=== PATIENT | female | born 1950 | race Caucasian/White ===

== ENCOUNTER 2017-11-28 19:08 | Emergency (ER) | payer MEDICARE ==
[~2017-11-28] VITALS: Ht 160 cm; Wt 131.8 kg
[~2017-11-28 19:08] MED LIST: AMLO5TAB16 PO; DIAZ5TAB PO; FERR325T32 PO; GEMF600T3 CORPAK; HYDR-4070 PO; LEVO125T8 PO; LOSA25TA96 PO; PRAM0.258 PO; TRAM100T34 PO
[2017-11-28 19:49] LABS: BASOPHILS % (AUTO) 0.3 % (0-1); EOSINOPHILS % (AUTO) 0.2 % (0-6); HEMATOCRIT 33.7 % (35.0-45.0); LYMPHOCYTES # (AUTO) 1.6 X10'3 (1.1-4.8); LYMPHOCYTES % (AUTO) 9.6 % (21-51); MEAN CORPUSCULAR HEMOGLOBIN 31.2 PG (27.0-31.0); MEAN CORPUSCULAR HGB CONC 32.5 % (33.0-36.5); MEAN CORPUSCULAR VOLUME 95.9 FL (78-98); MEAN PLATELET VOLUME 7.6 FL (7.4-10.4); MONOCYTES # (AUTO) 1.1 X10'3 (0-0.9); MONOCYTES % (AUTO) 6.9 % (2-12); NEUTROPHILS # (AUTO) 13.7 X10'3 (1.8-7.7); PLATELET COUNT 356 X10'3 (140-440); RED BLOOD COUNT 3.51 X10'6 (4.20-5.60); RED CELL DISTRIBUTION WIDTH 15.6 % (11.5-14.5); WHITE BLOOD COUNT 16.5 X10'3 (4.5-11.0)
[2017-11-28 19:59] LABS: PROTHROMBIN TIME 10.7 SECONDS (9.0-12.0)
[2017-11-28 19:59] LABS: CLARITY,URINE TURBID (Clear); COLOR,URINE YELLOW (Yellow); GLUCOSE, URINE NEGATIVE (Neg); KETONES,URINE NEGATIVE (Neg); LEUKOCYTE ESTERASE ,URINE LARGE (Neg); NITRITES, URINE NEGATIVE (Neg); OCCULT BLOOD,URINE MODERATE (Neg); PROTEIN,URINE >=300 mg/dl (Neg); UROBILINOGEN,URINE 0.2 E.U/dL (0.2-1.0)
[2017-11-28 20:04] LABS: ALANINE AMINOTRANSFERASE 22 U/L (12-78); ALBUMIN 2.7 G/DL (3.4-5.0); ALBUMIN/GLOBULIN RATIO 0.6 (1.1-1.5); ALKALINE PHOSPHATASE 102 IU/L (46-116); ANION GAP 9 (8-16); ASPARTATE AMINO TRANSFERASE 13 U/L (10-37); BILIRUBIN,TOTAL 0.3 MG/DL (0.1-1.0); BLOOD UREA NITROGEN 33 MG/DL (7-18); BUN/CREATININE RATIO 10.8 (6.6-38.0); CHLORIDE 102 MMOL/L (99-107); CREATININE 3.06 MG/DL (0.40-0.90); GLUCOSE 153 MG/DL (70-104); LIPASE 89 U/L (73-393); POTASSIUM 4.7 MMOL/L (3.5-5.1); SODIUM 138 MMOL/L (135-145); TOTAL CARBON DIOXIDE 27.3 MMOL/L (24-32); TOTAL PROTEIN 7.1 G/DL (6.4-8.2); eGFR 15 ML/MIN
[2017-11-28 20:06] LABS: UA COLLECTION TYPE CLN CATCH MIDSTREAM
[2017-11-28 20:13] LABS: BACTERIA,URINE 3+ /HPF (Neg); MUCUS STRANDS NONE SEEN /LPF (Neg); SQUAMOUS EPITHELIAL CELL,UR FEW /LPF (FEW); TRANSITIONAL EPI CELLS,URINE FEW /HPF; WBC,URINE TNTC /HPF (0-4); YEAST MODERATE /HPF (NEGATIVE)
[2017-11-28] MEDS ORDERED: levoFLOXACIN 750MG TABLET PO ONE (20:25)
[2017-11-28] MEDS ORDERED: phenazopyridine 100mg tablet PO ONE (20:25)
[2017-11-28 20:52] LABS: ANISOCYTOSIS 1+; PLATELET ESTIMATE NORMAL; TOTAL CELLS COUNTED 100
[2017-11-28 20:53] LABS: TARGET CELLS FEW
[2017-11-28 20:55] VITALS: BP 148/72
[2017-11-28] MEDS ORDERED: LEVO500T89 PO (21:22)
[2017-11-28] MEDS ORDERED: PHEN-716 PO (21:22)
== END 2017-11-28 21:38 | disposition home or self-care (01) ==
LOC: ER 19:09
DX: N39.0 Urinary tract infection, site not specified (principal); N28.9 Disorder of kidney and ureter, unspecified; R60.0 Localized edema; I10 Essential (primary) hypertension; E11.9 Type 2 diabetes mellitus without complications; G89.29 Other chronic pain; Z87.442 Personal history of urinary calculi; Z90.49 Acquired absence of other specified parts of digestive tract; Z88.0 Allergy status to penicillin; Z79.899 Other long term (current) drug therapy
CPT/HCPCS: 36415; 80053; 81001; 83690; 85025; 85610; 87088; 99284

== ENCOUNTER 2017-12-06 03:25 | Inpatient (IN) | payer MEDICARE ==
[~2017-12-06] VITALS: Ht 160 cm; Wt 130.4 kg
[~2017-12-06 03:25] MED LIST changes: +LEVO500T89 PO; +PHEN-716 PO
[2017-12-06] MEDS ORDERED: normal saline 1000ml 1,000 ML IV ONE (03:55)
[2017-12-06] MEDS ORDERED: metoclopramide 5 mg/ml inj IV ONE (03:55)
[2017-12-06 04:11] LABS: BASOPHILS # (AUTO) 0.1 X10'3 (0-0.2); BASOPHILS % (AUTO) 0.6 % (0-1); EOSINOPHILS # (AUTO) 0.1 X10'3 (0-0.9); EOSINOPHILS % (AUTO) 0.3 % (0-6); HEMATOCRIT 31.8 % (35.0-45.0); HEMOGLOBIN 10.6 g/dl (12.0-16.0); LYMPHOCYTES # (AUTO) 2.5 X10'3 (1.1-4.8); LYMPHOCYTES % (AUTO) 13.2 % (21-51); MEAN CORPUSCULAR HEMOGLOBIN 31.2 PG (27.0-31.0); MEAN CORPUSCULAR HGB CONC 33.2 % (33.0-36.5); MEAN PLATELET VOLUME 7.1 FL (7.4-10.4); MONOCYTES % (AUTO) 5.3 % (2-12); NEUTROPHILS # (AUTO) 15.1 X10'3 (1.8-7.7); NEUTROPHILS % (AUTO) 80.6 % (42-75); PLATELET COUNT 373 X10'3 (140-440); RED BLOOD COUNT 3.39 X10'6 (4.20-5.60); WHITE BLOOD COUNT 18.8 X10'3 (4.5-11.0)
[2017-12-06 04:28] LABS: ALANINE AMINOTRANSFERASE 31 U/L (12-78); ALBUMIN 2.4 G/DL (3.4-5.0); ALBUMIN/GLOBULIN RATIO 0.5 (1.1-1.5); ALKALINE PHOSPHATASE 152 IU/L (46-116); ANION GAP 14 (8-16); ASPARTATE AMINO TRANSFERASE 21 U/L (10-37); BILIRUBIN,TOTAL 0.3 MG/DL (0.1-1.0); BLOOD UREA NITROGEN 53 MG/DL (7-18); BUN/CREATININE RATIO 12.5 (6.6-38.0); CALCIUM 8.8 MG/DL (8.5-10.1); CHLORIDE 102 MMOL/L (99-107); CREATININE 4.23 MG/DL (0.40-0.90); GLUCOSE 178 MG/DL (70-104); POTASSIUM 4.3 MMOL/L (3.5-5.1); SODIUM 138 MMOL/L (135-145); TOTAL CARBON DIOXIDE 22.5 MMOL/L (24-32); eGFR 10 ML/MIN
[2017-12-06 04:30] LABS: CLARITY,URINE CLOUDY (Clear); COLOR,URINE YELLOW (Yellow); GLUCOSE, URINE NEGATIVE (Neg); KETONES,URINE NEGATIVE (Neg); LEUKOCYTE ESTERASE ,URINE LARGE (Neg); OCCULT BLOOD,URINE SMALL (Neg); PROTEIN,URINE 100 mg/dl (Neg); UROBILINOGEN,URINE 0.2 E.U/dL (0.2-1.0)
[2017-12-06 04:36] LABS: UA COLLECTION TYPE CLN CATCH MIDSTREAM
[2017-12-06 04:37] LABS: NITRITES, URINE NEGATIVE (Neg); WBC,URINE 50-100 /HPF (0-4)
[2017-12-06 04:38] LABS: BACTERIA,URINE FEW /HPF (Neg); SQUAMOUS EPITHELIAL CELL,UR FEW /LPF (FEW); WBC CLUMPS,URINE FEW /HPF (NEGATIVE); YEAST MODERATE /HPF (NEGATIVE)
[2017-12-06] MEDS ORDERED: CefTRIAXone/D5W-Rocephin 1gm 50 ML IV ONE (04:55)
[2017-12-06] MEDS ORDERED: fluconazole 100mg tablet PO ONE ×2 (04:55→05:10)
[2017-12-06] MEDS ORDERED: diphenhydrAMINE 50 mg/ml inj IV ONE (05:10)
[2017-12-06] MEDS ORDERED: ondansetron/PF 4mg/2ml inj IV PRN (05:25)
[2017-12-06] MEDS ORDERED: insulin Lispro (HumaLOG) vial - multi-dose SQ SCH ×2 (05:25→11:00)
[2017-12-06] MEDS ORDERED: acetaminophen 325mg tablet PO PRN ×2 (05:25)
[2017-12-06] MEDS ORDERED: glucagon, human recombinant 1mg kit SUBCUT PRN ×2 (05:25→11:00)
[2017-12-06] MEDS ORDERED: magnesium hydroxide 30ml (MOM) UD suspension PO PRN (05:25)
[2017-12-06] MEDS ORDERED: dextrose ORAL solution 15 GM/59 ML bottle PO PRN ×4 (05:25→11:00)
[2017-12-06] MEDS ORDERED: mag hydrox/Alum hydrox/simeth 30ml oral suspension PO PRN (05:25)
[2017-12-06] MEDS ORDERED: diphenhydrAMINE 50 mg/ml inj IV PRN (05:25)
[2017-12-06] MEDS ORDERED: dextrose 50%-water 50ml dispensing syringe IV PRN ×4 (05:25→11:00)
[2017-12-06] MEDS ORDERED: HYDROcodone/acetaminophen 5mg/325mg tablet PO PRN (05:25)
[2017-12-06] MEDS ORDERED: diazepam 5mg tablet PO PRN (05:30)
[2017-12-06] MEDS: normal saline 1000ml 1,000 ML IV SCH ×2 (06:00→16:29)
[2017-12-06] MEDS ORDERED: fluconazole 150mg tablet PO ONE (06:30)
[2017-12-06] MEDS ORDERED: pramipexole 0.25mg tablet PO ONE (06:35)
[2017-12-06 08:00] VITALS: BP 158/87
[2017-12-06] MEDS ORDERED: ferrous sulfate 325mg tablet PO SCH (08:00)
[2017-12-06] MEDS ORDERED: pramipexole 0.25mg tablet PO SCH ×2 (08:00)
[2017-12-06] MEDS ORDERED: gemfibrozil 600mg tablet CORPAK SCH (08:00)
[2017-12-06] MEDS: losartan 50mg tablet PO SCH (08:00)
[2017-12-06] MEDS ORDERED: levoTHYROXINE 125mcg tablet PO SCH (08:00)
[2017-12-06] MEDS: HYDROcodone/acetaminophen 10/325mg tab PO PRN (09:17)
[2017-12-06] MEDS: enoxaparin 30mg/0.3ml syringe SUBCUT SCH (09:18)
[2017-12-06] MEDS: hydrALAZINE 25 MG tablet PO SCH ×3 (09:18→23:36)
[2017-12-06] MEDS: amLODIPine 5mg tablet PO SCH (10:07)
[2017-12-06] MEDS ORDERED: MESSAGE TO PHARMACY PO ONE (11:00)
[2017-12-06 12:00] VITALS: BP 134/67
[2017-12-06] MEDS: fluconazole 100mg tablet PO SCH (16:29)
[2017-12-06 19:00] VITALS: BP 132/69
[2017-12-06] MEDS: pramipexole 0.25mg tablet PO SCH (20:57)
[2017-12-06] MEDS: traMADol 50MG tablet PO SCH (20:57)
[2017-12-06] MEDS ORDERED: insulin glargine (Lantus) pen - multi-dose SQ SCH (21:00)
[2017-12-06] MEDS: insulin glargine (Lantus) pen - multi-dose SQ SCH (21:00)
[2017-12-06] MEDS ORDERED: temazepam 15mg capsule PO PRN (21:00)
[2017-12-07 00:13] VITALS: BP 130/69
[2017-12-07] MEDS: normal saline 1000ml 1,000 ML IV SCH ×3 (01:17→20:16)
[2017-12-07 06:33] LABS: BASOPHILS % (AUTO) 0.2 % (0-1); EOSINOPHILS # (AUTO) 0.2 X10'3 (0-0.9); HEMATOCRIT 29.1 % (35.0-45.0); HEMOGLOBIN 9.5 g/dl (12.0-16.0); LYMPHOCYTES # (AUTO) 3.3 X10'3 (1.1-4.8); LYMPHOCYTES % (AUTO) 22.2 % (21-51); MEAN CORPUSCULAR HEMOGLOBIN 30.7 PG (27.0-31.0); MEAN CORPUSCULAR HGB CONC 32.5 % (33.0-36.5); MEAN CORPUSCULAR VOLUME 94.4 FL (78-98); MEAN PLATELET VOLUME 6.9 FL (7.4-10.4); MONOCYTES # (AUTO) 0.9 X10'3 (0-0.9); MONOCYTES % (AUTO) 6.3 % (2-12); NEUTROPHILS # (AUTO) 10.3 X10'3 (1.8-7.7); NEUTROPHILS % (AUTO) 70.3 % (42-75); PLATELET COUNT 315 X10'3 (140-440); RED BLOOD COUNT 3.08 X10'6 (4.20-5.60); RED CELL DISTRIBUTION WIDTH 15.6 % (11.5-14.5); WHITE BLOOD COUNT 14.6 X10'3 (4.5-11.0)
[2017-12-07 06:40] VITALS: BP 112/73
[2017-12-07 06:47] LABS: ALBUMIN 2.1 G/DL (3.4-5.0); ANION GAP 11 (8-16); BLOOD UREA NITROGEN 44 MG/DL (7-18); BUN/CREATININE RATIO 13.8 (6.6-38.0); CALCIUM 8.3 MG/DL (8.5-10.1); CHLORIDE 108 MMOL/L (99-107); CHOL/HDL RATIO 4.7 (0.00-4.99); CHOLESTEROL 127 MG/DL (0-200); CREATININE 3.19 MG/DL (0.40-0.90); GLUCOSE 118 MG/DL (70-104); HDL CHOLESTEROL 27 MG/DL (35-60); LDL CHOLESTEROL 78 MG/DL (50-100); POTASSIUM 4.4 MMOL/L (3.5-5.1); SODIUM 142 MMOL/L (135-145); TOTAL CARBON DIOXIDE 23.1 MMOL/L (24-32); TRIGLYCERIDES 163 MG/DL (20-135); eGFR 14 ML/MIN
[2017-12-07] MEDS: levoTHYROXINE 175mcg tablet PO SCH (07:29)
[2017-12-07] MEDS: hydrALAZINE 25 MG tablet PO SCH ×3 (07:29→23:51)
[2017-12-07] MEDS: CefTRIAXone/D5W-Rocephin 1gm 50 ML IV SCH (07:31)
[2017-12-07] MEDS: amLODIPine 5mg tablet PO SCH (07:32)
[2017-12-07] MEDS: enoxaparin 30mg/0.3ml syringe SUBCUT SCH ×2 (07:33→12:28)
[2017-12-07] MEDS: losartan 50mg tablet PO SCH (07:33)
[2017-12-07] MEDS: fluconazole 100mg tablet PO SCH (07:41)
[2017-12-07] MEDS ORDERED: ALLO100T PO (09:48)
[2017-12-07 11:43] VITALS: BP 165/89
[2017-12-07] MEDS: HYDROcodone/acetaminophen 10/325mg tab PO PRN (12:28)
[2017-12-07 19:36] VITALS: BP 141/80
[2017-12-07] MEDS: lactobacillus rhamnosus 10,000 MMU CELLS/CAPSULE PO SCH (20:11)
[2017-12-07] MEDS: pramipexole 0.25mg tablet PO SCH (20:12)
[2017-12-07] MEDS: docusate sod 100mg capsule PO SCH (20:12)
[2017-12-07] MEDS: insulin glargine (Lantus) pen - multi-dose SQ SCH (20:14)
[2017-12-07] MEDS: traMADol 50MG tablet PO SCH (20:16)
[2017-12-07 23:57] VITALS: BP 134/73
[2017-12-08] MEDS: normal saline 1000ml 1,000 ML IV SCH (03:09)
[2017-12-08 05:11] LABS: BASOPHILS # (AUTO) 0.1 X10'3 (0-0.2); BASOPHILS % (AUTO) 0.5 % (0-1); EOSINOPHILS # (AUTO) 0.1 X10'3 (0-0.9); EOSINOPHILS % (AUTO) 0.7 % (0-6); HEMATOCRIT 27.9 % (35.0-45.0); HEMOGLOBIN 9.1 g/dl (12.0-16.0); LYMPHOCYTES % (AUTO) 18.9 % (21-51); MEAN CORPUSCULAR HGB CONC 32.8 % (33.0-36.5); MEAN CORPUSCULAR VOLUME 94.3 FL (78-98); MEAN PLATELET VOLUME 7.2 FL (7.4-10.4); MONOCYTES # (AUTO) 0.8 X10'3 (0-0.9); MONOCYTES % (AUTO) 5.1 % (2-12); NEUTROPHILS # (AUTO) 11.8 X10'3 (1.8-7.7); NEUTROPHILS % (AUTO) 74.8 % (42-75); PLATELET COUNT 294 X10'3 (140-440); RED BLOOD COUNT 2.96 X10'6 (4.20-5.60); WHITE BLOOD COUNT 15.8 X10'3 (4.5-11.0)
[2017-12-08 05:46] LABS: ALBUMIN 2.1 G/DL (3.4-5.0); ANION GAP 7 (8-16); BLOOD UREA NITROGEN 38 MG/DL (7-18); BUN/CREATININE RATIO 13.4 (6.6-38.0); CALCIUM 8.4 MG/DL (8.5-10.1); CHLORIDE 107 MMOL/L (99-107); CREATININE 2.84 MG/DL (0.40-0.90); GLUCOSE 117 MG/DL (70-104); POTASSIUM 4.5 MMOL/L (3.5-5.1); SODIUM 140 MMOL/L (135-145); TOTAL CARBON DIOXIDE 25.8 MMOL/L (24-32); eGFR 17 ML/MIN
[2017-12-08 06:59] VITALS: BP 138/82
[2017-12-08] MEDS: fluconazole 100mg tablet PO SCH (07:17)
[2017-12-08] MEDS: amLODIPine 5mg tablet PO SCH (07:18)
[2017-12-08] MEDS: levoTHYROXINE 175mcg tablet PO SCH (07:18)
[2017-12-08] MEDS: docusate sod 100mg capsule PO SCH (07:18)
[2017-12-08] MEDS: lactobacillus rhamnosus 10,000 MMU CELLS/CAPSULE PO SCH (07:18)
[2017-12-08] MEDS: hydrALAZINE 25 MG tablet PO SCH (07:18)
[2017-12-08] MEDS: CefTRIAXone/D5W-Rocephin 1gm 50 ML IV SCH (07:19)
[2017-12-08] MEDS: enoxaparin 30mg/0.3ml syringe SUBCUT SCH (07:19)
[2017-12-08] MEDS ORDERED: INSU300I3 SQ (10:58)
[2017-12-08] MEDS ORDERED: LACT1CAP26 PO (10:58)
[2017-12-08] MEDS ORDERED: CEFD300C3 PO (10:58)
[2017-12-08] MEDS ORDERED: FLUC100T9 PO (10:58)
[2017-12-08 11:36] VITALS: BP 143/67
== END 2017-12-08 12:01 | disposition home or self-care (01) | DRG 872 ==
LOC: ER 03:26 → ED HOLD 05:22 → SUR 3N 07:15
PROVIDERS: ADMIT Hospitalist; ATTEND Family Medicine
PROC: CT131ZZ Planar Nuclear Medicine Imaging of Kidneys, Ureters and Bladder using Technetium 99m (Tc-99m) (ICD-10-PCS; principal; 2017-12-07)
DX: A41.9 Sepsis, unspecified organism (principal); N17.9 Acute kidney failure, unspecified; Z68.43 Body mass index [BMI] 50.0-59.9, adult; N13.6 Pyonephrosis; D64.9 Anemia, unspecified; D86.85 Sarcoid myocarditis; E03.9 Hypothyroidism, unspecified; E11.22 Type 2 diabetes mellitus with diabetic chronic kidney disease; E66.01 Morbid (severe) obesity due to excess calories; E86.0 Dehydration; G89.29 Other chronic pain; I12.9 Hypertensive chronic kidney disease with stage 1 through stage 4 chronic kidney disease, or unspecified chronic kidney disease; M19.90 Unspecified osteoarthritis, unspecified site; N18.9 Chronic kidney disease, unspecified; Z90.49 Acquired absence of other specified parts of digestive tract; Z90.710 Acquired absence of both cervix and uterus; Z99.81 Dependence on supplemental oxygen; Z88.0 Allergy status to penicillin; Z79.899 Other long term (current) drug therapy; Z79.4 Long term (current) use of insulin; Z87.442 Personal history of urinary calculi
CPT/HCPCS: 36415; 71045; 74176; 78707; 80048; 80053; 80061; 81001; 82948; 83605; 84145; 84443; 85025; 87040; 87070; 87088; 88300; 93005; 93306; 96361; 96374; 96375; 99285; A6258; A6402; A9562; J0696; J1200; J1650; J1815; J2765; J7030

== ENCOUNTER 2018-08-22 17:26 | Emergency (ER) | payer MEDICARE ==
[~2018-08-22] VITALS: Ht 167.6 cm; Wt 125.0 kg
[~2018-08-22 17:26] MED LIST changes: +ALLO100T PO; +FLUC100T9 PO; -GEMF600T3 CORPAK; +GEMF600T5 CORPAK; +INSU300I3 SQ; +LACT1CAP26 PO; -LEVO500T89 PO; -LOSA25TA96 PO; -PHEN-716 PO
[2018-08-22] MEDS ORDERED: diazepam 5mg tablet PO ONE (17:40)
[2018-08-22] MEDS ORDERED: ondansetron/PF 4mg/2ml inj IV ONE (17:45)
[2018-08-22] MEDS ORDERED: DIAZ5TAB PO (19:05)
[2018-08-22 19:12] VITALS: BP 156/89
--- NOTE | 2018-08-22 19:58 | NUR ---
educated pt on dc instuctions including medications, all questions answered. iv removed w/canula intact. pt assisted to pov via wheelchair, denies any dizziness at dc..
== END 2018-08-22 20:03 | disposition home or self-care (01) ==
LOC: ER 17:27
DX: R42 Dizziness and giddiness (principal); R11.2 Nausea with vomiting, unspecified; R20.2 Paresthesia of skin; I12.9 Hypertensive chronic kidney disease with stage 1 through stage 4 chronic kidney disease, or unspecified chronic kidney disease; E11.22 Type 2 diabetes mellitus with diabetic chronic kidney disease; N18.9 Chronic kidney disease, unspecified; G89.29 Other chronic pain; M54.9 Dorsalgia, unspecified; Z79.4 Long term (current) use of insulin; Z90.49 Acquired absence of other specified parts of digestive tract; Z88.0 Allergy status to penicillin
CPT/HCPCS: 96374; 99284; J2405

== ENCOUNTER 2019-01-27 13:54 | Emergency (ER) | payer MEDICARE ==
[~2019-01-27] VITALS: Ht 160 cm; Wt 127.3 kg
[2019-01-27 14:16] LABS: BASOPHILS # (AUTO) 0.1 X10'3 (0-0.2); BASOPHILS % (AUTO) 0.8 % (0-1); EOSINOPHILS # (AUTO) 0.1 X10'3 (0-0.9); HEMATOCRIT 35.2 % (35.0-45.0); HEMOGLOBIN 11.4 g/dl (12.0-16.0); LYMPHOCYTES # (AUTO) 3.5 X10'3 (1.1-4.8); LYMPHOCYTES % (AUTO) 38.5 % (21-51); MEAN CORPUSCULAR HEMOGLOBIN 32.2 PG (27.0-31.0); MEAN CORPUSCULAR HGB CONC 32.3 g/dL (33.0-36.5); MEAN CORPUSCULAR VOLUME 99.6 FL (78-98); MEAN PLATELET VOLUME 7.8 FL (7.4-10.4); MONOCYTES # (AUTO) 0.5 X10'3 (0-0.9); MONOCYTES % (AUTO) 5.9 % (2-12); NEUTROPHILS # (AUTO) 4.9 X10'3 (1.8-7.7); NEUTROPHILS % (AUTO) 53.8 % (42-75); PLATELET COUNT 272 X10'3 (140-440); RED BLOOD COUNT 3.54 X10'6 (4.20-5.60); RED CELL DISTRIBUTION WIDTH 13.8 % (11.5-14.5); WHITE BLOOD COUNT 9.2 X10'3 (4.5-11.0)
[2019-01-27] MEDS ORDERED: LORazepam 2 mg/ml vial IV ONE (14:25)
[2019-01-27] MEDS ORDERED: normal saline 1000ML IV soln IVB ONE (14:25)
[2019-01-27 14:28] LABS: ALANINE AMINOTRANSFERASE 21 U/L (12-78); ALBUMIN 3.2 G/DL (3.4-5.0); ALBUMIN/GLOBULIN RATIO 0.9 (1.1-1.5); ALKALINE PHOSPHATASE 77 IU/L (46-116); ANION GAP 10 (8-16); ASPARTATE AMINO TRANSFERASE 13 U/L (10-37); BILIRUBIN,TOTAL 0.3 MG/DL (0.1-1.0); BLOOD UREA NITROGEN 36 MG/DL (7-18); BUN/CREATININE RATIO 16.4 (6.6-38.0); CALCIUM 8.6 MG/DL (8.5-10.1); CHLORIDE 106 MMOL/L (99-107); GLUCOSE 224 MG/DL (70-104); PARTIAL THROMBOPLASTIN TIME 27 SECONDS (22-32); POTASSIUM 4.7 MMOL/L (3.5-5.1); SODIUM 140 MMOL/L (135-145); TOTAL CARBON DIOXIDE 23.7 MMOL/L (24-32); TOTAL PROTEIN 6.6 G/DL (6.4-8.2); eGFR 22 ML/MIN
--- NOTE | 2019-01-27 14:30 | NUR ---
STROKE ALERT CALLED OFF BY DR VILLATORO
[2019-01-27 14:31] LABS: TROPONIN I < 0.04 NG/ML (0.0-0.05)
[2019-01-27 16:04] LABS: CLARITY,URINE CLOUDY (Clear); COLOR,URINE STRAW (Yellow); GLUCOSE, URINE NEGATIVE (Neg); KETONES,URINE NEGATIVE (Neg); LEUKOCYTE ESTERASE ,URINE SMALL (Neg); NITRITES, URINE NEGATIVE (Neg); OCCULT BLOOD,URINE TRACE-INTACT (Neg); PROTEIN,URINE >=300 mg/dl (Neg); UROBILINOGEN,URINE 0.2 E.U/dL (0.2-1.0)
[2019-01-27 16:05] LABS: UA COLLECTION TYPE STRAIGHT CATH
[2019-01-27 16:10] LABS: HYALINE CASTS 0-3 /LPF (NEGATIVE); MUCUS STRANDS NONE SEEN /LPF (Neg); SQUAMOUS EPITHELIAL CELL,UR FEW /LPF (FEW); WBC,URINE TNTC /HPF (0-4)
[2019-01-27 16:11] LABS: WBC CLUMPS,URINE FEW /HPF (NEGATIVE)
[2019-01-27 16:12] LABS: RBC,URINE 20-50 /HPF (0-2)
[2019-01-27 16:13] LABS: BACTERIA,URINE NONE SEEN /HPF (Neg)
[2019-01-27 16:15] LABS: AMORPHOUS URATES 2+
--- NOTE | 2019-01-27 16:19 | NUR ---
MD AWARE OF URINE RESULTS, ORDER FOR A CULTURE
[2019-01-27] MEDS ORDERED: CefTRIAXone 2gm/D5W 50ml 50 ML IV ONE (16:20)
[2019-01-27] MEDS ORDERED: CEPH500C5 PO (17:12)
[2019-01-27 17:32] VITALS: BP 148/77
== END 2019-01-27 17:37 | disposition home or self-care (01) ==
LOC: ER 13:55
DX: N39.0 Urinary tract infection, site not specified (principal); R20.0 Anesthesia of skin; E86.0 Dehydration; I12.9 Hypertensive chronic kidney disease with stage 1 through stage 4 chronic kidney disease, or unspecified chronic kidney disease; E11.22 Type 2 diabetes mellitus with diabetic chronic kidney disease; N18.9 Chronic kidney disease, unspecified; G89.29 Other chronic pain; Z90.49 Acquired absence of other specified parts of digestive tract; Z88.0 Allergy status to penicillin; Z79.2 Long term (current) use of antibiotics; Z79.4 Long term (current) use of insulin; Z79.899 Other long term (current) drug therapy
CPT/HCPCS: 36415; 70450; 71045; 80053; 81001; 84484; 85025; 85610; 85730; 87088; 93005; 96361; 96365; 96375; 99284; J0696; J2060; J7030; P9612

== ENCOUNTER 2019-07-09 12:47 | Emergency (ER) | payer MEDICARE ==
[~2019-07-09] VITALS: Ht 160 cm; Wt 117.5 kg
[~2019-07-09 12:47] MED LIST changes: +CEPH500C5 PO
[2019-07-09 13:55] LABS: BASOPHILS % (AUTO) 0.5 % (0-1); EOSINOPHILS # (AUTO) 0.1 X10'3 (0-0.9); EOSINOPHILS % (AUTO) 0.8 % (0-6); HEMATOCRIT 34.3 % (35.0-45.0); HEMOGLOBIN 11.3 g/dl (12.0-16.0); LYMPHOCYTES # (AUTO) 2.8 X10'3 (1.1-4.8); LYMPHOCYTES % (AUTO) 31.8 % (21-51); MEAN CORPUSCULAR HEMOGLOBIN 32.5 PG (27.0-31.0); MEAN CORPUSCULAR HGB CONC 32.9 g/dL (33.0-36.5); MEAN CORPUSCULAR VOLUME 98.9 FL (78-98); MEAN PLATELET VOLUME 7.3 FL (7.4-10.4); MONOCYTES # (AUTO) 0.6 X10'3 (0-0.9); MONOCYTES % (AUTO) 6.4 % (2-12); NEUTROPHILS # (AUTO) 5.4 X10'3 (1.8-7.7); NEUTROPHILS % (AUTO) 60.5 % (42-75); PLATELET COUNT 287 X10'3 (140-440); RED BLOOD COUNT 3.47 X10'6 (4.20-5.60); RED CELL DISTRIBUTION WIDTH 14.2 % (11.5-14.5); WHITE BLOOD COUNT 8.8 X10'3 (4.5-11.0)
[2019-07-09 14:12] LABS: ALANINE AMINOTRANSFERASE 20 U/L (12-78); ALBUMIN 3.1 G/DL (3.4-5.0); ALBUMIN/GLOBULIN RATIO 0.9 (1.1-1.5); ALKALINE PHOSPHATASE 103 IU/L (46-116); ANION GAP 9 (8-16); ASPARTATE AMINO TRANSFERASE 13 U/L (10-37); BILIRUBIN,TOTAL 0.2 MG/DL (0.1-1.0); BLOOD UREA NITROGEN 47 MG/DL (7-18); CHLORIDE 108 MMOL/L (99-107); CREATININE 2.48 MG/DL (0.40-0.90); GLUCOSE 186 MG/DL (70-104); POTASSIUM 4.8 MMOL/L (3.5-5.1); SODIUM 143 MMOL/L (135-145); TOTAL CARBON DIOXIDE 26.3 MMOL/L (24-32); TOTAL PROTEIN 6.7 G/DL (6.4-8.2); eGFR 19 ML/MIN
[2019-07-09] MEDS ORDERED: normal saline 1000ml 1,000 ML IV ONE ×2 (15:10→17:00)
[2019-07-09 16:15] LABS: CLARITY,URINE SLIGHTLY CLOUDY (Clear); COLOR,URINE YELLOW (Yellow); GLUCOSE, URINE 100 mg/dl (Neg); KETONES,URINE NEGATIVE (Neg); LEUKOCYTE ESTERASE ,URINE SMALL (Neg); NITRITES, URINE NEGATIVE (Neg); OCCULT BLOOD,URINE TRACE-INTACT (Neg); PROTEIN,URINE >=300 mg/dl (Neg); UROBILINOGEN,URINE 0.2 E.U/dL (0.2-1.0)
[2019-07-09 16:22] LABS: UA COLLECTION TYPE CLN CATCH MIDSTREAM
[2019-07-09 16:26] LABS: RBC,URINE 0-2 /HPF (0-2); WBC,URINE TNTC /HPF (0-4)
[2019-07-09 16:27] LABS: BACTERIA,URINE 1+ /HPF (Neg); MUCUS STRANDS NONE SEEN /LPF (Neg); SQUAMOUS EPITHELIAL CELL,UR MANY /LPF (FEW)
[2019-07-09] MEDS ORDERED: LEVO750T21 PO (17:10)
[2019-07-09] MEDS ORDERED: CefTRIAXone/D5W-Rocephin 1gm 50 ML IV ONE (17:10)
[2019-07-09 18:03] VITALS: BP 196/93
== END 2019-07-09 18:05 | disposition home or self-care (01) ==
LOC: ER 12:48
DX: N39.0 Urinary tract infection, site not specified (principal); G89.29 Other chronic pain; I12.9 Hypertensive chronic kidney disease with stage 1 through stage 4 chronic kidney disease, or unspecified chronic kidney disease; E11.22 Type 2 diabetes mellitus with diabetic chronic kidney disease; N18.9 Chronic kidney disease, unspecified; Z90.49 Acquired absence of other specified parts of digestive tract; Z88.0 Allergy status to penicillin; Z79.899 Other long term (current) drug therapy; Z87.442 Personal history of urinary calculi
CPT/HCPCS: 36415; 74176; 80053; 81001; 85025; 96365; 99284; J0696; J7030

== ENCOUNTER 2019-12-04 11:54 | Emergency (ER) | payer MEDICARE ==
[~2019-12-04] VITALS: Ht 160 cm; Wt 131.8 kg
[2019-12-04 15:26] VITALS: BP 175/110
== END 2019-12-04 15:35 | disposition home or self-care (01) ==
LOC: ER 11:55
DX: M71.21 Synovial cyst of popliteal space [Baker], right knee (principal); M19.90 Unspecified osteoarthritis, unspecified site; I12.9 Hypertensive chronic kidney disease with stage 1 through stage 4 chronic kidney disease, or unspecified chronic kidney disease; N18.9 Chronic kidney disease, unspecified; E11.22 Type 2 diabetes mellitus with diabetic chronic kidney disease; G89.29 Other chronic pain; Z90.49 Acquired absence of other specified parts of digestive tract; Z88.0 Allergy status to penicillin; Z79.4 Long term (current) use of insulin; Z79.899 Other long term (current) drug therapy
CPT/HCPCS: 93971; 99285

== ENCOUNTER 2020-04-12 09:14 | Emergency (ER) | payer MEDICARE ==
[~2020-04-12] VITALS: Ht 160 cm; Wt 131.8 kg
[~2020-04-12 09:14] MED LIST changes: -CEPH500C5 PO
[2020-04-12 10:01] LABS: BASOPHILS % (AUTO) 0.3 % (0-1); EOSINOPHILS % (AUTO) 0.1 % (0-6); HEMATOCRIT 28.9 % (35.0-45.0); HEMOGLOBIN 9.4 g/dl (12.0-16.0); LYMPHOCYTES # (AUTO) 1.8 X10'3 (1.1-4.8); LYMPHOCYTES % (AUTO) 27.8 % (21-51); MEAN CORPUSCULAR HEMOGLOBIN 33.3 PG (27.0-31.0); MEAN CORPUSCULAR HGB CONC 32.4 g/dL (33.0-36.5); MEAN CORPUSCULAR VOLUME 102.6 FL (78-98); MEAN PLATELET VOLUME 7.6 FL (7.4-10.4); MONOCYTES # (AUTO) 0.6 X10'3 (0-0.9); MONOCYTES % (AUTO) 9.3 % (2-12); NEUTROPHILS # (AUTO) 4.2 X10'3 (1.8-7.7); NEUTROPHILS % (AUTO) 62.5 % (42-75); PLATELET COUNT 205 X10'3 (140-440); RED BLOOD COUNT 2.82 X10'6 (4.20-5.60); RED CELL DISTRIBUTION WIDTH 14.9 % (11.5-14.5); WHITE BLOOD COUNT 6.7 X10'3 (4.5-11.0)
[2020-04-12 10:11] LABS: ALANINE AMINOTRANSFERASE 15 U/L (12-78); ALBUMIN 2.8 G/DL (3.4-5.0); ALBUMIN/GLOBULIN RATIO 0.8 (1.1-1.5); ALKALINE PHOSPHATASE 76 IU/L (46-116); ANION GAP 6 (8-16); ASPARTATE AMINO TRANSFERASE 15 U/L (10-37); BILIRUBIN,TOTAL 0.3 MG/DL (0.1-1.0); BLOOD UREA NITROGEN 42 MG/DL (7-18); CALCIUM 8.3 MG/DL (8.5-10.1); CHLORIDE 107 MMOL/L (99-107); CREATININE 2.47 MG/DL (0.40-0.90); GLUCOSE 113 MG/DL (70-104); LIPASE 155 U/L (73-393); SODIUM 138 MMOL/L (135-145); TOTAL CARBON DIOXIDE 24.7 MMOL/L (24-32); TOTAL PROTEIN 6.4 G/DL (6.4-8.2); eGFR 19 ML/MIN
[2020-04-12 11:10] LABS: CLARITY,URINE CLOUDY (Clear); COLOR,URINE STRAW (Yellow); GLUCOSE, URINE NEGATIVE (Neg); KETONES,URINE NEGATIVE (Neg); LEUKOCYTE ESTERASE ,URINE SMALL (Neg); NITRITES, URINE NEGATIVE (Neg); OCCULT BLOOD,URINE NEGATIVE (Neg); PROTEIN,URINE >=300 mg/dl (Neg); UROBILINOGEN,URINE 0.2 E.U/dL (0.2-1.0)
[2020-04-12 11:17] LABS: UA COLLECTION TYPE CLN CATCH MIDSTREAM
[2020-04-12 11:19] LABS: SQUAMOUS EPITHELIAL CELL,UR MODERATE /LPF (FEW)
[2020-04-12 11:20] LABS: MUCUS STRANDS FEW /LPF (Neg); TRANSITIONAL EPI CELLS,URINE FEW /HPF; WBC CLUMPS,URINE MANY /HPF (NEGATIVE); WBC,URINE 50-100 /HPF (0-4)
[2020-04-12 11:21] LABS: BACTERIA,URINE 1+ /HPF (Neg); RBC,URINE 0-2 /HPF (0-2)
[2020-04-12] MEDS ORDERED: LEVO500T89 PO (11:40)
[2020-04-12 12:18] VITALS: BP 161/90
== END 2020-04-12 12:11 | disposition home or self-care (01) ==
LOC: ER 09:14
DX: N39.0 Urinary tract infection, site not specified (principal); I13.10 Hypertensive heart and chronic kidney disease without heart failure, with stage 1 through stage 4 chronic kidney disease, or unspecified chronic kidney disease; E13.22 Other specified diabetes mellitus with diabetic chronic kidney disease; N18.9 Chronic kidney disease, unspecified; G89.29 Other chronic pain; Z90.49 Acquired absence of other specified parts of digestive tract; Z98.890 Other specified postprocedural states; Z88.0 Allergy status to penicillin; Z79.899 Other long term (current) drug therapy; Z20.828 Contact with and (suspected) exposure to other viral communicable diseases
CPT/HCPCS: 36415; 80053; 81001; 83690; 85025; 87077; 87088; 87186; 87635; 99283

== ENCOUNTER 2020-04-15 19:43 | Emergency (ER) | payer MEDICARE ==
[~2020-04-15] VITALS: Ht 160 cm; Wt 131.8 kg
[2020-04-15 20:24] LABS: BASOPHILS % (AUTO) 0.3 % (0-1); EOSINOPHILS % (AUTO) 0 % (0-6); HEMATOCRIT 32.5 % (35.0-45.0); HEMOGLOBIN 10.4 g/dl (12.0-16.0); LYMPHOCYTES # (AUTO) 1.7 X10'3 (1.1-4.8); LYMPHOCYTES % (AUTO) 25.3 % (21-51); MEAN CORPUSCULAR HEMOGLOBIN 32.6 PG (27.0-31.0); MEAN CORPUSCULAR HGB CONC 32.1 g/dL (33.0-36.5); MEAN CORPUSCULAR VOLUME 101.7 FL (78-98); MEAN PLATELET VOLUME 8.3 FL (7.4-10.4); MONOCYTES # (AUTO) 0.4 X10'3 (0-0.9); NEUTROPHILS # (AUTO) 4.5 X10'3 (1.8-7.7); NEUTROPHILS % (AUTO) 68.4 % (42-75); PLATELET COUNT 204 X10'3 (140-440); RED CELL DISTRIBUTION WIDTH 14.4 % (11.5-14.5); WHITE BLOOD COUNT 6.6 X10'3 (4.5-11.0)
[2020-04-15 20:45] LABS: ALANINE AMINOTRANSFERASE 19 U/L (12-78); ALBUMIN 2.8 G/DL (3.4-5.0); ALBUMIN/GLOBULIN RATIO 0.7 (1.1-1.5); ALKALINE PHOSPHATASE 82 IU/L (46-116); ANION GAP 10 (8-16); ASPARTATE AMINO TRANSFERASE 21 U/L (10-37); BILIRUBIN,TOTAL 0.3 MG/DL (0.1-1.0); BLOOD UREA NITROGEN 46 MG/DL (7-18); BUN/CREATININE RATIO 15.9 (6.6-38.0); CALCIUM 8.3 MG/DL (8.5-10.1); CHLORIDE 101 MMOL/L (99-107); GLUCOSE 157 MG/DL (70-104); MAGNESIUM 1.5 MG/DL (1.5-2.4); POTASSIUM 4.7 MMOL/L (3.5-5.1); SODIUM 133 MMOL/L (135-145); TOTAL CARBON DIOXIDE 21.7 MMOL/L (24-32); TOTAL PROTEIN 6.8 G/DL (6.4-8.2); eGFR 16 ML/MIN
[2020-04-15] MEDS ORDERED: acetaminophen 325mg tablet PO ONE (20:50)
[2020-04-15] MEDS ORDERED: normal saline 1000ml 1,000 ML IV ONE (20:50)
[2020-04-15] MEDS ORDERED: ondansetron/PF 4mg/2ml inj IV ONE (20:50)
--- NOTE | 2020-04-15 21:34 | NUR ---
PT UP FOR DISCHARGE AFTER TREATMENT. PT ABLE TO BE OFF OF OXYGEN FOR RIDE HOME PER PT. TESTED IN ED. SPO2 OF 95 WHEN LEFT ON ROOM AIR.
[2020-04-15] MEDS ORDERED: ACET-1025 PO (21:59)
[2020-04-15] MEDS ORDERED: ONDA4TAB6 PO (21:59)
[2020-04-15 22:39] VITALS: BP 143/75
== END 2020-04-15 23:09 | disposition home or self-care (01) ==
LOC: ER 19:44
DX: U07.1 COVID-19 (principal); R11.2 Nausea with vomiting, unspecified; E11.22 Type 2 diabetes mellitus with diabetic chronic kidney disease; I13.10 Hypertensive heart and chronic kidney disease without heart failure, with stage 1 through stage 4 chronic kidney disease, or unspecified chronic kidney disease; N18.9 Chronic kidney disease, unspecified; G89.29 Other chronic pain; Z98.890 Other specified postprocedural states; Z90.49 Acquired absence of other specified parts of digestive tract
CPT/HCPCS: 36415; 71045; 80053; 83605; 83735; 84145; 85025; 87040; 93005; 96361; 96374; 99285; J2405; J7030

== ENCOUNTER 2020-04-21 17:20 | Emergency (ER) | payer MEDICARE ==
[~2020-04-21] VITALS: Ht 160 cm; Wt 131.0 kg
[~2020-04-21 17:20] MED LIST changes: +ACET-1025 PO; +ONDA4TAB6 PO
--- NOTE | 2020-04-21 17:48 | NUR ---
oxygen titrated down to 2L.sating 97%.no reported sob.
[2020-04-21] MEDS ORDERED: levoFLOXACIN-Levaquin 500mg/D5 100 ML IV ONE (18:00)
[2020-04-21 18:30] LABS: BASOPHILS % (AUTO) 0.4 % (0-1); EOSINOPHILS % (AUTO) 0 % (0-6); HEMOGLOBIN 10.4 g/dl (12.0-16.0); LYMPHOCYTES # (AUTO) 1.7 X10'3 (1.1-4.8); LYMPHOCYTES % (AUTO) 20.1 % (21-51); MEAN CORPUSCULAR HEMOGLOBIN 32.2 PG (27.0-31.0); MEAN CORPUSCULAR HGB CONC 32.6 g/dL (33.0-36.5); MEAN CORPUSCULAR VOLUME 98.9 FL (78-98); MEAN PLATELET VOLUME 8.4 FL (7.4-10.4); MONOCYTES # (AUTO) 0.5 X10'3 (0-0.9); MONOCYTES % (AUTO) 5.4 % (2-12); NEUTROPHILS # (AUTO) 6.2 X10'3 (1.8-7.7); NEUTROPHILS % (AUTO) 74.1 % (42-75); PLATELET COUNT 220 X10'3 (140-440); RED BLOOD COUNT 3.23 X10'6 (4.20-5.60); WHITE BLOOD COUNT 8.4 X10'3 (4.5-11.0)
[2020-04-21 18:52] LABS: ALANINE AMINOTRANSFERASE 26 U/L (12-78); ALBUMIN 2.1 G/DL (3.4-5.0); ALBUMIN/GLOBULIN RATIO 0.5 (1.1-1.5); ALKALINE PHOSPHATASE 81 IU/L (46-116); ANION GAP 10 (8-16); ASPARTATE AMINO TRANSFERASE 38 U/L (10-37); BILIRUBIN,TOTAL 0.3 MG/DL (0.1-1.0); BLOOD UREA NITROGEN 48 MG/DL (7-18); BUN/CREATININE RATIO 14.5 (6.6-38.0); CALCIUM 7.9 MG/DL (8.5-10.1); CHLORIDE 99 MMOL/L (99-107); GLUCOSE 137 MG/DL (70-104); POTASSIUM 4.3 MMOL/L (3.5-5.1); SODIUM 128 MMOL/L (135-145); TOTAL CARBON DIOXIDE 19.5 MMOL/L (24-32); eGFR 14 ML/MIN
[2020-04-21 18:54] LABS: C-REACTIVE PROTEIN 3.24 MG/DL (0.0-0.5); LACTATE DEHYDROGENASE 288 U/L (81-234)
[2020-04-21] MEDS ORDERED: METO5TAB85 PO (19:20)
[2020-04-21 20:28] VITALS: BP 128/73
== END 2020-04-21 21:04 | disposition home or self-care (01) ==
LOC: ER 17:20
DX: J02.9 Acute pharyngitis, unspecified (principal); I13.10 Hypertensive heart and chronic kidney disease without heart failure, with stage 1 through stage 4 chronic kidney disease, or unspecified chronic kidney disease; E11.22 Type 2 diabetes mellitus with diabetic chronic kidney disease; N18.9 Chronic kidney disease, unspecified; Z87.442 Personal history of urinary calculi; G89.29 Other chronic pain; M54.9 Dorsalgia, unspecified; Z90.49 Acquired absence of other specified parts of digestive tract; Z98.890 Other specified postprocedural states
CPT/HCPCS: 36415; 71045; 80053; 83605; 83615; 83880; 84145; 84484; 85025; 86140; 87040; 93005; 96365; 96366; 99285; J1956